=== PATIENT | female | born 1950 | race Hispanic/Latino ===

== ENCOUNTER 2017-09-12 13:26 | Emergency (ER) | payer MEDICARE, OTHER ==
[2017-09-12 14:00] VITALS: BMI 23.8
[2017-09-12 14:06] VITALS: RESP 18; TEMP 97.8
[2017-09-12] MEDS ORDERED: Bacitracin 500 Units/gm Oint Foilpak UD TOP STA (14:31)
--- NOTE | 2017-09-12 15:15 | ED PDOC ---
Arrival/HPI - General Chief Complaint: Finger,Hand,&Wrist Time Seen by Provider: 09/12/17 14:14 Historian: Patient - History of Present Illness Narrative History of Present Illness (Text): you were treated in the ED today for walking your dog and having the leash tug on your right hand and with a fence with swelling/superficial abrasions to the fingers with swelling/bruising of the 2nd/3rd fingers but otherwise without any head injury/neck pain/loss of consciousness/nausea/vomiting/headache/dizziness/ difficulty breathing/chest pain/abdomen pain/numbness/tingling/loss of limb function/pain with urination. 09/12/17 15:21 Time/Duration: 1 hour Symptom Course: Unchanged Quality: Aching Severity Level: 1 Past Medical History - Provider Review Nursing Documentation Reviewed: Yes - Travel History Have you recently traveled outside [place] w/in the past 3 mons?: No - Infectious Disease Hx of Infectious Diseases: None - Tetanus Immunization Tetanus Immunization: Unknown - Psychiatric Hx Depression: No Hx Emotional Abuse: No Hx Physical Abuse: No Hx Substance Use: No - Surgical History Other/Comment: cyst removal - Anesthesia Hx Anesthesia Reactions: No Hx Malignant Hyperthermia: No - Suicidal Assessment Feels Threatened In Home Enviroment: No Family/Social History - Physician Review Nursing Documentation Reviewed: Yes Family/Social History: No Known Family HX Smoking Status: Former Smoker Hx Alcohol Use: No Hx Substance Use: No Allergies/Home Meds Allergies/Adverse Reactions: Allergies acetaminophen [From Tylenol] Allergy (Verified 09/12/17 14:01) RASH Penicillins Allergy (Verified 09/12/17 14:01) VOMITING pseudoephedrine [From Sudafed] Allergy (Verified 09/12/17 14:01) RASH Home Medications: Home Meds Medication Instructions Recorded Confirmed No Known Home Med [No Known Home 06/11/13 09/12/17 Med] Review of Systems - Review of Systems Constitutional: Normal Eyes: Normal ENT: Normal Respiratory: Normal Cardiovascular: Normal Gastrointestinal: Normal Genitourinary Female: Normal Musculoskeletal: Joint Swelling Skin: Other (right hand superficial abrasions) Neurological: Normal Endocrine: Normal Hemo/Lymphatic: Normal Psychiatric: Normal Physical Exam Vital Signs Reviewed: Yes Vital Signs Temp Pulse Resp BP Pulse Ox 09/12/17 14:04 97.8 F 75 18 122/48 L 95 Temperature: Afebrile Blood Pressure: Hypertensive Pulse: Regular Respiratory Rate: Normal Appearance: Positive for: Well-Appearing Pain Distress: None Mental Status: Positive for: Alert and Oriented X 3 - Systems Exam Head: Present: Atraumatic, Normocephalic Pupils: Present: PERRL Extroacular Muscles: Present: EOMI Conjunctiva: Present: Normal Ears: Present: Normal Mouth: Present: Moist Mucous Membranes Pharnyx: Present: Normal Nose (External): Present: Atraumatic Nose (Internal): Present: Normal Inspection Neck: Present: Normal Range of Motion Respiratory/Chest: Present: Clear to Auscultation, Good Air Exchange Cardiovascular: Present: Regular Rate and Rhythm Abdomen: No: Tenderness, Distention, Normal Bowel Sounds, Peritoneal Signs, Rebound, Guarding, McBurney's Point Tender, Rovsing's Sign Present, Hernias, Feeding Tubes, Ostomy Tubes, Mass/Organomegaly, Scars, Other Back: Present: Normal Inspection (no c-t-l spinal or paraspinal tenderness) Upper Extremity: Present: Other (right hand mild superficial abrasions of the mid-fingers wo mild swelling 2nd/3rd fingers wo any specific bony or snuffbox tenderness. +from/warm/sensation/cap refill/radial pulse.) Lower Extremity: Present: Normal Inspection Neurological: Present: GCS=15, CN II-XII Intact, Speech Normal, Motor Func Grossly Intact Skin: Present: Warm, Other (see ue) Psychiatric: Present: Alert, Oriented x 3, Normal Insight, Normal Concentration Medical Decision Making ED Course and Treatment: 09/12/17 15:15 right hand mild superficial abrasions of the mid-fingers wo mild swelling 2nd/ 3rd fingers wo any specific bony or snuffbox tenderness. +from/warm/sensation/ cap refill/radial pulse. you were treated in the ED today for walking your dog and having the leash tug on your right hand and with a fence with swelling/superficial abrasions to the fingers with swelling/bruising of the 2nd/3rd fingers but otherwise without any head injury/neck pain/loss of consciousness/nausea/vomiting/headache/dizziness/ difficulty breathing/chest pain/abdomen pain/numbness/tingling/loss of limb function/pain with urination. You were otherwise breathing easily, smiling and talking easily, good strength/sensation, alert/oriented, walking easily, clear lungs, no abdomen tenderness, right hand mild superficial abrasions of the mid- fingers wo mild swelling 2nd/3rd fingers without any specific bony tenderness. positive warm/sensation/pink/radial pulse. no fever temp 97.8, stable heart rate 75, stable breathing rate 18, excellent oxygen level 95% room air, elevated blood pressure 122/48 which we recommend repeat in 2-3 days primary care office to determine further treatment, radiology right hand xray no acute fracture, bacitracin ointment done in the ED to right hand superficial abrasions with improvement, you didn't want any pain medication and said you will check with your doctor for your tetanus status, counselled rest right hand and not wear rings till swelling resolved and thus discharged home. 1. Recommend tylenol or motrin as directed for pain and swelling. 2. Recommend heating pad and rest to right hand. 3. Recommend follow-up primary care 2-3 days to review symptoms, referral to hand surgery clinic for degenerative changes. 4. If any worsening pain, fever, chills, nausea, vomiting, difficulty breathing, numbness, loss of limb function, pain with urination or any medical condition then return to the ED. 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 Dictator: Prabhjot Prater MD 09/12/17 15:41 - RAD Interpretation Radiology Orders: 09/12/17 14:31 HAND RIGHT 3 VIEWS [RAD] Stat - Medication Orders Current Medication Orders: Discontinued Medications Bacitracin (Bacitracin) 2 ea TOP ONCE STA Stop: 09/12/17 14:32 Last Admin: 09/12/17 14:55 Dose: 2 ea Disposition/Present on Arrival - Present on Arrival Any Indicators Present on Arrival: No History of DVT/PE: No History of Uncontrolled Diabetes: No Urinary Catheter: No History of Decub. Ulcer: No History Surgical Site Infection Following: None - Disposition Have Diagnosis and Disposition been Completed?: Yes Diagnosis: Hand injury Disposition: HOME/ ROUTINE Disposition Time: 15:42 Patient Plan: Discharge Condition: IMPROVED Additional Instructions: you were treated in the ED today for walking your dog and having the leash tug on your right hand and with a fence with swelling/superficial abrasions to the fingers with swelling/bruising of the 2nd/3rd fingers but otherwise without any head injury/neck pain/loss of consciousness/nausea/vomiting/headache/dizziness/ difficulty breathing/chest pain/abdomen pain/numbness/tingling/loss of limb function/pain with urination. You were otherwise breathing easily, smiling and talking easily, good strength/sensation, alert/oriented, walking easily, clear lungs, no abdomen tenderness, right hand mild superficial abrasions of the mid- fingers wo mild swelling 2nd/3rd fingers without any specific bony tenderness. positive warm/sensation/pink/radial pulse. no fever temp 97.8, stable heart rate 75, stable breathing rate 18, excellent oxygen level 95% room air, elevated blood pressure 122/48 which we recommend repeat in 2-3 days primary care office to determine further treatment, radiology right hand xray no acute fracture, bacitracin ointment done in the ED to right hand superficial abrasions with improvement, you didn't want any pain medication and said you will check with your doctor for your tetanus status, counselled rest right hand and not wear rings till swelling resolved and thus discharged home. 1. Recommend tylenol or motrin as directed for pain and swelling. 2. Recommend heating pad and rest to right hand. 3. Recommend follow-up primary care 2-3 days to review symptoms, referral to hand surgery clinic for degenerative changes. 4. If any worsening pain, fever, chills, nausea, vomiting, difficulty breathing, numbness, loss of limb function, pain with urination or any medical condition then return to the ED. Referrals: PCP,NO [Primary Care Provider] - Follow up with primary Forms: [employer] ([place])
--- NOTE | 2017-09-12 15:24 | RAD ---
PROCEDURE: Right Hand Radiographs. HISTORY: 67yoF, right hand injury COMPARISON: None. FINDINGS: BONES: Normal. No fracture. 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 OTHER FINDINGS: None. 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
[2017-09-12 15:51] VITALS: BP 118/59; PULSE 69; O2SAT 97
== END 2017-09-12 17:00 | disposition home or self-care (01) ==
LOC: ED 13:26
DX: S69.91XA Unspecified injury of right wrist, hand and finger(s), initial encounter (principal); X58.XXXA Exposure to other specified factors, initial encounter; Z87.891 Personal history of nicotine dependence